=== PATIENT | female | born 1955 | race Two or more races ===

== ENCOUNTER 2017-01-21 23:24 | Emergency (ER) | payer OTHER, MEDICAID ==
[2017-01-21 23:47] VITALS: TEMP 98.4
[2017-01-22] MEDS ORDERED: ERTAPENEM 1 GM in NS 100 ML IV ONE (00:30)
[2017-01-22] MEDS ORDERED: CEFAZOLIN 1 GM/DEXTROSE/50 ML BAG IV ONE (00:32)
[2017-01-22 01:03] VITALS: BP 108/88; PULSE 72; RESP 18; O2SAT 99
--- NOTE | 2017-01-25 13:07 | GCON ---
[f rep st] CONSULTATION DATE OF CONSULTATION: 01/21/2017 CHIEF COMPLAINT: Bleeding and dehiscence of neck lift incision, right side. HISTORY OF PRESENTING COMPLAINT: The patient is a 61-year-old, lady who underwent a neck l ift surgery 8 days prior to her emergency room visit. She was seen by me in the office at the [facility]-we[facility] k [facility], that is 1 day before coming to the ER, and everything was coming along fine. Earlier in the day on the , she attempted to wash her hair with the help of her sister, and apparently some bl eeding began. She was then seen in the [facility] where there was either completion of opening up the wound or possibly the wound had already dehisced, and bleeding was controlled by the emergency r oom doctor there. She was then transferred to [facility] for my care. On examination, she had packing in the opened up wound behind the right ear. When this was removed, there was no bleeding observed. TREATMENT RENDERED: The wound was irrigated with saline and closed with 3-0, 5-0 and 4-0 Prolene. Dressing of Xeroform and gauze was applied followed by an elastic head dressing. DISCHARGE PLAN AND FOLLOWUP: The patient was doing well and she was therefore discharged home in e care of her daughter. She will be seen in my office in 3-4 days' time. Prescription has been giv en for Keflex to carry on after the gram of Ancef was given in the emergency room. /[id number]/MODL
== END 2017-01-22 00:58 | disposition home or self-care (01) ==
DX: T81.30XA Disruption of wound, unspecified, initial encounter (principal); Y82.8 Other medical devices associated with adverse incidents
CPT/HCPCS: 96365; 99284; J0690; J1335